=== PATIENT | male | born 1960 | race Caucasian/White ===

== ENCOUNTER 2020-05-03 14:41 | Emergency (ER) | payer BC ==
--- NOTE | 2020-05-03 16:22 | RAD REPORT ---
EXAM DESCRIPTION: RAD - Foot Right 3 View - 05/03/2020 4:09 pm CLINICAL HISTORY: Swelling;Pain COMPARISON: OS CALCIS CALCANEUS dated 01/17/2014 FINDINGS: Lucency is seen at the base of the fourth metatarsal suspicious for a fracture. No midfoot dislocation or subluxation is evident. Moderate soft tissue swelling is seen along the dorsum of the midfoot. IMPRESSION: Fracture along the base of the fourth metatarsal is suspected. Moderate soft tissue swel ling along the dorsum of the midfoot. Consider followup nonemergent MR imaging to assess the integrity of the Lisfranc ligament.
--- NOTE | 2020-05-03 16:27 | EDPHYS ---
Physician Documentation [facility] Name: Gerald Mark Age: 59 yrs Sex: Male : 1960 Arrival Date: 05/03/2020 Time: 14:43 Bed 26 Private MD: ED Physician María Washington HPI: 05/03 16:33 This 59 yrs old Male presents to ER via Wheelchair with complaints of Foot kb Injury. 16:33 The patient presents with a contusion, decreased range of motion, an injury, pain, kb swelling, tenderness. The complaints affect the right foot. Context: The problem was sustained outdoors, resulted from the patient tripping, the patient can partially bear weight, the patient is able to ambulate. Onset: The symptoms/episode began/occurred just prior to arrival. Modifying factors: The symptoms are alleviated by nothing, the symptoms are aggravated by weight bearing, movement. Associated signs and symptoms: Pertinent positives: swelling, Pertinent negatives: calf tenderness, fever, nausea, numbness, rash, tingling, vomiting, warmth, weakness. Severity of symptoms: At their worst the symptoms were moderate, in the emergency department the symptoms are unchanged. The patient has not experienced similar symptoms in the past. The patient has not recently seen a physician. Historical: - Allergies: 15:09 PENICILLINS; iw - Home Meds: 15:09 Verapamil Oral [Active]; iw - PMHx: 15:09 Hypertension; iw - PSHx: 15:09 left foot; iw - Immunization history:: Adult Immunizations not up to date. - Social history:: Smoking status: Patient/guardian denies using tobacco. ROS: 16:32 Constitutional: Negative for fever, chills, and weight loss, Cardiovascular: Negative kb for chest pain, palpitations, and edema, Respiratory: Negative for shortness of breath, cough, wheezing, and pleuritic chest pain, Abdomen/GI: Negative for abdominal pain, nausea, vomiting, diarrhea, and constipation, Neuro: Negative for headache, weakness, numbness, tingling, and seizure. 16:32 MS/extremity: Positive for injury or acute deformity, contusion, decreased range of motion, ecchymosis, pain, swelling, tenderness, of the dorsum of right foot. Exam: 16:32 Constitutional: This is a well developed, well nourished patient who is awake, alert, kb and in no acute distress. Head/Face: Normocephalic, atraumatic. Chest/axilla: Normal chest wall appearance and motion. Nontender with no deformity. No lesions are appreciated. Cardiovascular: Regular rate and rhythm with a normal S1 and S2. No gallops, murmurs, or rubs. Normal PMI, no JVD. No pulse deficits. Respiratory: Lungs have equal breath sounds bilaterally, clear to auscultation and percussion. No rales, rhonchi or wheezes noted. No increased work of breathing, no retractions or nasal flaring. Abdomen/GI: Soft, non-tender, with normal bowel sounds. No distension or tympany. No guarding or rebound. No evidence of tenderness throughout. Neuro: Awake and alert, GCS 15, oriented to person, place, time, and situation. Cranial nerves II-XII grossly intact. Motor strength 5/5 in all extremities. Sensory grossly intact. Cerebellar exam normal. Normal gait. 16:32 Musculoskeletal/extremity: Extremities: grossly normal except: noted in the dorsum of right foot: contusion, decreased ROM, ecchymosis, pain, swelling, tenderness, ROM: intact in all extremities, Circulation is intact in all extremities. Sensation intact. Weight bearing: can bear weight with assistance only. Vital Signs: 15:07 BP 157 / 92; Pulse 70; Resp 16; Temp 98.5; Pulse Ox 100% ; Weight 108.86 kg; Height 6 iw ft. 1 in. (185.42 cm); Pain 8/10; 16:20 BP 152 / 90; Pulse 65; Resp 16 S; Pulse Ox 99% on R/A; ca1 17:10 BP 135 / 85; Pulse 71; Resp 16 S; Pulse Ox 100% on R/A; ca1 15:07 Body Mass Index 31.66 (108.86 kg, 185.42 cm) iw MDM: 15:57 Patient medically screened. kb 16:25 Data reviewed: vital signs, nurses notes. Data interpreted: Pulse oximetry: on room air kb is 99 %. Interpretation: normal. Counseling: I had a detailed discussion with the patient and/or guardian regarding: the historical points, exam findings, and any diagnostic results supporting the discharge/admit diagnosis, radiology results, the need for outpatient follow up, a orthopedic surgeon, to return to the emergency department if symptoms worsen or persist or if there are any questions or concerns that arise at home. 05/03 15:11 Order name: Foot Right 3 View XRAY; Complete Time: 16:24 iw 05/03 16:28 Order name: Post-op shoe; Complete Time: 17:04 kb 05/03 16:28 Order name: Crutches; Complete Time: 17:04 kb Administered Medications: 16:15 Drug: Ibuprofen 600 mg Route: PO; ca1 17:14 Follow up: Response: No adverse reaction; Pain is decreased ca1 16:16 Drug: Cedar (7.5 mg-325 mg) 1 tabs {Note: rass 0.} Route: PO; ca1 17:14 Follow up: Response: No adverse reaction; Pain is decreased; RASS: Alert and Calm (0) ca1 Disposition: 18:01 Co-signature as Attending Physician, María Washington MD. ma2 Disposition: 05/03/20 16:26 Discharged to Home. Impression: Nondisplaced fracture of fourth metatarsal bone, right foot. - Condition is Stable. - Discharge Instructions: Metatarsal Fracture. - Prescriptions for Tylenol- Codeine #3 300-30 mg Oral Tablet - take 1 tablet by ORAL route every 6 hours As needed; 14 tablet. - Medication Reconciliation Form, Thank You Letter, Antibiotic Education, Prescription Opioid Use, Work release form form. - Follow up: Emergency Department; When: As needed; Reason: Worsening of condition. Follow up: Private Physician; When: 2 - 3 days; Reason: Recheck today's complaints, Continuance of care, Re-evaluation by your physician. Signatures: Dispatcher [employer] Margo Mccann, SESAR-C SCRAPER BURRER-CkLiz Dempsey, ROHAN RN María Washington MD MD ma2 Paty Berry RN RN ca1 Corrections: (The following items were deleted from the chart) 17:15 16:26 05/03/2020 16:26 Discharged to Home. Impression: Nondisplaced fracture of fourth ca1 metatarsal bone, right foot. Condition is Stable. Forms are Medication Reconciliation Form, Thank You Letter, Antibiotic Education, Prescription Opioid Use. Follow up: Emergency Department; When: As needed; Reason: Worsening of condition. Follow up: Private Physician; When: 2 - 3 days; Reason: Recheck today's complaints, Continuance of care, Re-evaluation by your physician. kb
--- NOTE | 2020-05-03 16:27 | ER ---
Nurse's Notes [facility] Name: Gerald Mark Age: 59 yrs Sex: Male : 1960 Arrival Date: 05/03/2020 Time: 14:43 Bed 26 Private MD: Diagnosis: Nondisplaced fracture of fourth metatarsal bone, right foot Presentation: 05/03 15:07 Chief complaint: Patient states: tripped and rolled his right foot forward, now has iw sharp pain and swelling to foot. Coronavirus screen: At this time, the client does not indicate any symptoms associated with coronavirus-19. Ebola Screen: Patient negative for fever greater than or equal to 101.5 degrees Fahrenheit, and additional compatible Ebola Virus Disease symptoms Patient denies exposure to infectious person. Patient denies travel to an Ebola-affected area in the 21 days before illness onset. No symptoms or risks identified at this time. Initial Sepsis Screen: Does the patient meet any 2 criteria? No. Patient's initial sepsis screen is negative. Does the patient have a suspected source of infection? No. Patient's initial sepsis screen is negative. Risk Assessment: Do you want to hurt yourself or someone else? Patient reports no desire to harm self or others. Onset of symptoms was May 03, 2020. 15:07 Method Of Arrival: Wheelchair iw 15:07 Acuity: SOPHIA 4 iw Triage Assessment: 16:22 Injury Description: Bruise sustained to dorsum of right foot is. ca1 Historical: - Allergies: 15:09 PENICILLINS; iw - Home Meds: 15:09 Verapamil Oral [Active]; iw - PMHx: 15:09 Hypertension; iw - PSHx: 15:09 left foot; iw - Immunization history:: Adult Immunizations not up to date. - Social history:: Smoking status: Patient/guardian denies using tobacco. Screenin:20 Abuse screen: Denies threats or abuse. Denies injuries from another. Nutritional ca1 screening: No deficits noted. Tuberculosis screening: No symptoms or risk factors identified. 16:22 Fall Risk None identified. ca1 Assessment: 16:05 General: Appears in no apparent distress. comfortable, Behavior is calm, cooperative, ca1 appropriate for age. Pain: Pain: Complains of pain in right foot Pain currently is 6 out of 10 on a pain scale. 16:20 Neuro: Level of Consciousness is awake, alert, obeys commands, Oriented to person, ca1 place, time, situation. Derm: Skin is intact, is healthy with good turgor, Skin is pink, warm \T\ dry. Musculoskeletal: Circulation, motion, and sensation intact. Capillary refill < 3 seconds, Swelling present in dorsum of right foot. 17:00 Reassessment: Patient appears in no apparent distress at this time. Patient is alert, ca1 oriented x 3, equal unlabored respirations, skin warm/dry/pink. Vital Signs: 15:07 BP 157 / 92; Pulse 70; Resp 16; Temp 98.5; Pulse Ox 100% ; Weight 108.86 kg; Height 6 iw ft. 1 in. (185.42 cm); Pain 8/10; 16:20 BP 152 / 90; Pulse 65; Resp 16 S; Pulse Ox 99% on R/A; ca1 17:10 BP 135 / 85; Pulse 71; Resp 16 S; Pulse Ox 100% on R/A; ca1 15:07 Body Mass Index 31.66 (108.86 kg, 185.42 cm) iw ED Course: 14:43 Patient arrived in ED. rg4 15:08 Triage completed. iw 15:09 Margo Naranjo FNP-C [facility]. kb 15:09 María Washington MD is Attending Physician. kb 15:09 Arm band placed on. iw 16:05 Foot Right 3 View XRAY In Process Unspecified. EDMS 16:08 Paty Berry, RN is Primary Nurse. ca1 16:20 Patient has correct armband on for positive identification. Bed in low position. Call ca1 light in reach. Side rails up X 1. Pulse ox on. NIBP on. 17:00 Crutch training done. Ortho shoe applied to right foot. jp3 17:14 No provider procedures requiring assistance completed. Patient did not have IV access ca1 during this emergency room visit. Administered Medications: 16:15 Drug: Ibuprofen 600 mg Route: PO; ca1 17:14 Follow up: Response: No adverse reaction; Pain is decreased ca1 16:16 Drug: [place]view (7.5 mg-325 mg) 1 tabs {Note: rass 0.} Route: PO; ca1 17:14 Follow up: Response: No adverse reaction; Pain is decreased; RASS: Alert and Calm (0) ca1 Outcome: 16:26 Discharge ordered by MD. childress 17:14 Discharged to home via wheelchair, with crutches, with significant other. ca1 17:14 Condition: stable 17:14 Discharge instructions given to patient, Instructed on discharge instructions, follow up and referral plans. no drinking with medication, no driving heavy equipment, medication usage, Demonstrated understanding of instructions, follow-up care, medications, Prescriptions given X 1. 17:15 Patient left the ED. ca1 Signatures: Dispatcher [employer] EDMargo Gar, SESAR-C MAIL CALLER-Liz Chávez, RN RN Bee Thomas rg4 Gomez Jimenez jp3 Paty Berry RN RN ca1 Corrections: (The following items were deleted from the chart) 16:21 16:05 Pain: ca1 ca1 16:21 16:20 Fall Risk IV access (20 points). ca1 ca1
[2020-05-03] MEDS ORDERED: HYDROCODONE/APAP 7.5/325 MG TAB ONE (16:30)
[2020-05-03] MEDS ORDERED: IBUPROFEN 400 MG TAB ONE (16:30)
[2020-05-03] MEDS ORDERED: IBUPROFEN 200 MG TAB PO ONE (16:30)
--- OUTSIDE RECORDS SUMMARY | 2020-05-03 21:11 | XMS REPORT | Continuity of Care Document ---
:1960 Author Organization [facility] t Address [address] [place] [address] Care Team Providers Name Role Phone Doctor Unassigned, Name Attending Clinician Unavailable Lab, Fam Pob I Attending Clinician Unavailable Problems This patient has no known problems. Allergies, Adverse Reactions, Alerts This patient has no known allergies or adverse reactions. Medications This patient has no known medications. Procedures This patient has no known procedures. Encounters Start End Encounter Admission Attending Care Care Encounter Source Date/Time Date/Time Type Type Clinicians Facility Department ID 2020-01-07 2020-01-07 Patient Doctor TIM [id number] 00:00:00 00:00:00 Secure Msg Unassigned, ANNY [id number] [place] [facility] [id number] 2020-01-06 2020-01-06 Laboratory Lab, [facility] [id number] 08:02:04 08:22:04 Only Fam Pob I [facility] [id number] [place] [id number] [phone] [place] [address] One Results This patient has no known results.
== END 2020-05-03 17:15 | disposition home or self-care (01) ==
LOC: ER 14:41
DX: S92.344A Nondisplaced fracture of fourth metatarsal bone, right foot, initial encounter for closed fracture (principal); W01.0XXA Fall on same level from slipping, tripping and stumbling without subsequent striking against object, initial encounter; Y93.9 Activity, unspecified; Y92.89 Other specified places as the place of occurrence of the external cause; I10 Essential (primary) hypertension; Z88.0 Allergy status to penicillin
CPT/HCPCS: 99284